=== PATIENT | male | born 1990 | race Two or more races ===

== ENCOUNTER 2021-06-16 08:26 | Outpatient (REF) | payer OTHER, SELFPAY ==
--- NOTE | ~2021-06-16 | US_ITS ---
EXAMINATION: US ABDOMEN LIMITED CLINICAL INFORMATION: Lump on right lower back proximal to the SI joint. Rule out lipoma. COMPARISON: None. TECHNIQUE: Real-time imaging of the right lower back proximal to SI joint as indicated by patient. US/US abdomen limited FINDINGS/IMPRESSION: In the area of clinical concern in the right lower back proximal to the sacroiliac joint, there is no discrete fluid collection, abscess or measurable lesion. If the lump persists or increases in size, recommend reimaging perhaps with a different modality such as CT or MR.
--- NOTE | ~2021-06-16 | US_ITS ---
EXAMINATION: US PELVIS, LIMITED CLINICAL INFORMATION: Lump in the right groin. COMPARISON: None. TECHNIQUE: Targeted real-time sonographic images in the area of clinical concern were obtained. FINDINGS: There is a 2 x 1.8 x 0.6 cm right inguinal lymph node with preserved fatty noemy and ovoid shape. There is an additional smaller 1.4 x 0.7 x 0.9 cm right inguinal lymph node with also preserved fatty noemy and ovoid shape. There is a 0.6 x 0.3 x 0.8 cm nonspecific avascular lesion in between these 2 lymph nodes in the right inguinal region. No inguinal hernia. US/US pelvic limited IMPRESSION: In the right inguinal region, in the area of the palpable abnormalities, there are 2 benign-appearing inguinal lymph nodes, largest measuring 2 cm, and an additional indeterminate avascular cystic-appearing lesion that should be followed up with a short-term examination to ensure stability/resolution. No hernia.
== END 2021-06-16 08:27 | disposition home or self-care (01) ==
LOC: HO.HMGCX 08:26
PROVIDERS: PCP Nurse Practitioner Family; Visit Provider Nurse Practitioner Family
DX: R19.09 Other intra-abdominal and pelvic swelling, mass and lump (principal); R22.9 Localized swelling, mass and lump, unspecified
CPT/HCPCS: 76705; 76857